=== PATIENT | male | born 1950 | race Caucasian/White ===

== ENCOUNTER 2021-08-08 22:15 | Emergency (ER) | payer OTHER ==
--- NOTE | 2021-08-08 22:30 | ED Fall/Injury ---
General Chief Complaint: Trauma-Non Activation Stated Complaint: FALL Source: patient Exam Limitations: no limitations History of Present Illness Date Seen by Provider: Aug 08, 2021 Time Seen by Provider: 10:25 Initial Comments 71-year-old male presents to ER by private vehicle with complaint of injury secondary to fall while he was fishing this evening. Patient was standing on rocks and fell backwards accidentally. Has several areas that he scraped up, but primarily concerned of pain in his mid back from hitting the rocks. Denies Headache or any loss of consciousness, able to move all extremities without any difficulty. Denies abdominal, pelvic or hip pain Allergies and Home Medications Allergies Coded Allergies: No Known Drug Allergies (Unverified , 08/08/21) Patient Home Medication List Home Medication List Reviewed: Yes Review of Systems Review of Systems Constitutional: No fever, No malaise, No weakness Eyes: Denies Blurred Vision, Denies Photophobia Ears, Nose, Mouth, Throat: no symptoms reported Respiratory: no symptoms reported Cardiovascular: no symptoms reported Gastrointestinal: No abdominal pain, No nausea, No vomiting Musculoskeletal: see HPI, back pain; No joint pain, No muscle pain, No neck pain Skin: No change in color, No lesions; other (cut to back of head) Psychiatric/Neurological: Denies Headache, Denies Numbness, Denies Paresthesia Physical Exam Vital Signs Vital Signs - First Documented 08/08/21 22:20 Pulse 97 Resp 18 B/P (MAP) 188/73 (111) Pulse Ox 95 O2 Delivery Room Air Capillary Refill : Height, Weight, BMI Height: '" Weight: lbs. oz. kg; BMI Method: General Appearance: no apparent distress HEENT: PERRL/EOMI, normal ENT inspection, other (occipital scalp laceration.....stellate w small area at apex of lac which needed a staple, otherwise intact and no longer bleeding) Gastrointestinal: non tender, soft Back: normal inspection; No CVA tenderness (R), No CVA tenderness (L); vertebral tenderness (lower thoracic) Extremities: normal range of motion, non-tender, normal inspection, no pedal edema Neurologic/Psychiatric: no motor/sensory deficits, alert, normal mood/affect, oriented x 3 Skin: normal color, warm/dry, other (R lateral leg w superficial abrasions) Procedures/Interventions Wound Location: Scalp Wound Length (cm): 2 Wound's Depth, Shape: stellate, contused tissue Wound Explored: clean Betadine Prep?: No (surecleans) Staple Repair: Stapler 35W (#1) Sterile Dressing Applied?: No Progress/Results/Core Measures Results/Orders My Orders Orders - JENNA CRAMER DO Thoracic Spine 2 View Only (08/08/21 22:29) Vital Signs/I&O 08/08/21 22:20 Pulse 97 Resp 18 B/P (MAP) 188/73 (111) Pulse Ox 95 O2 Delivery Room Air Progress Progress Note : Progress Note reviewed films myself and read RAD interp. RE-examined pt for possible Rib fx, but does not fit clinically. Pain confined to an area of contused tissue near spine, not over rib and no corresponding pain ribs w AP compression Diagnostic Imaging Diagonstic Imaging: Xray Comments Date of Exam:08/08/21 THORACIC SPINE 2 VIEW ONLY EXAMINATION: Thoracic spine radiographs, 3 views. 4 images. COMPARISON: None. HISTORY: 71-year-old male, mid back pain after fall today. FINDINGS: There is no identified compression deformity or fracture. The alignment of the thoracic spine is unremarkable. There are multilevel mild disc degenerative changes of the thoracic spine. There are potential nondisplaced fractures of the left 10th and 11th ribs. IMPRESSION: 1. No identified compression deformity or fracture of the thoracic spine. 2. Multilevel mild disc degenerative changes of the thoracic spine. 3. Potential nondisplaced fractures of the left 10th and 11th ribs. Recommend correlation for focal pain at this site. Dictated by: Dictated on workstation # [id number] Dict: 08/08/217 Trans: 08/08/212256 [facility] [id number] Interpreted by: TIFFANIE MCCLELLAN MD Electronically signed by: TIFFANIE MCCLELLAN MD 08/08/212256 Departure Impression Primary Impression: Fall Qualified Codes: W19.XXXA - Unspecified fall, initial encounter Additional Impressions: Occipital scalp laceration Qualified Codes: S01.01XA - Laceration without foreign body of scalp, initial encounter Contusion of back Qualified Codes: S20.229A - Contusion of unspecified back wall of thorax, initial encounter Disposition: 01 HOME, SELF-CARE Condition: Stable Departure-Patient Inst. Decision time for Depature: 23:14 Referrals: MARINA MANNING MD (PCP/Family) Primary Care Physician Patient Instructions: Laceration Repair With [place] (DC), Minor Head Injury (DC), Contusion (DC) Add. Discharge Instructions: follow up with your PCP in 1 week if not improving, sooner if worse All discharge instructions reviewed with patient and/or family. Voiced understanding. JENNA CRAMER DO Aug 08, 2021 22:30
--- NOTE | 2021-08-08 22:51 | Diagnostic Imaging Report ---
EXAMINATION: Thoracic spine radiographs, 3 views. 4 images. COMPARISON: None. HISTORY: 71-year-old male, mid back pain after fall today. FINDINGS: There is no identified compression deformity or fracture. The alignment of the thoracic spine is unremarkable. There are multilevel mild disc degenerative changes of the thoracic spine. There are potential nondisplaced fractures of the left 10th and 11th ribs. IMPRESSION: 1. No identified compression deformity or fracture of the thoracic spine. 2. Multilevel mild disc degenerative changes of the thoracic spine. 3. Potential nondisplaced fractures of the left 10th and 11th ribs. Recommend correlation for focal pain at this site. Dictated by: Dictated on workstation # [id number]
[2021-08-08] MEDS ORDERED: BACITRACIN OINTMENT 28 GM TUBE TOP SCH (23:15)
[2021-08-08] MEDS ORDERED: RX-IBUPROFEN 600 MG (MOTRIN) TAB PPK#4 PO ONE (23:15)
[2021-08-08] MEDS ORDERED: IBUPROFEN 800 MG (MOTRIN) TAB PO ONE (23:15)
[2021-08-08 23:18] VITALS: BP 188/73
== END 2021-08-08 23:23 | disposition home or self-care (01) ==
LOC: ER FS 22:20
DX: S01.01XA Laceration without foreign body of scalp, initial encounter (principal); S30.0XXA Contusion of lower back and pelvis, initial encounter; W22.8XXA Striking against or struck by other objects, initial encounter
CPT/HCPCS: 72070

== ENCOUNTER → 2021-08-31 | Outpatient (CLI) | payer MEDICARE, OTHER | LOC: CARD 10:00 | PROVIDERS: ATTEND Family Medicine | DX: Z13.220 Encounter for screening for lipoid disorders (principal); I51.7 Cardiomegaly; I35.0 Nonrheumatic aortic (valve) stenosis; I35.1 Nonrheumatic aortic (valve) insufficiency | CPT/HCPCS: 93306 ==

== ENCOUNTER → 2022-02-26 | Outpatient (CLI) | payer MEDICARE ==
--- NOTE | 2022-02-26 10:57 | Diagnostic Imaging Report ---
CLINICAL HISTORY: Right knee pain. No known injury. COMPARISON: None. TECHNIQUE: 3 views of the right knee. FINDINGS: There is no acute fracture or dislocation of the right knee. Alignment is anatomic. Degenerative changes are seen in the right knee with marginal osteophytes present. No joint effusion is seen in the right knee. IMPRESSION: 1. No acute fracture or dislocation of the right knee. 2. Mild osteoarthritis in the right knee. Dictated by: Dictated on workstation # [id number]
== END ==
LOC: RAD FS 10:04
PROVIDERS: ATTEND Nurse Practitioner
DX: M17.11 Unilateral primary osteoarthritis, right knee (principal)
CPT/HCPCS: 73562